=== PATIENT | male | born 1995 | race Caucasian/White ===

== ENCOUNTER 2016-05-29 17:33 | Emergency (ER) | payer SELFPAY ==
[2016-05-29 18:43] VITALS: BP 146/75
--- NOTE | 2016-05-29 19:45 | UC ---
Complaint Male HPI - HPI Summary HPI Summary: The patient comes in today for: 1. Dysuria: Onset: One week Palliative/provocative: Dysuria--worse with urination. Quality: Burning with urination. Region: Severity: 10 Time: Mostly with urination. Associated symptoms: FEver: None. Testicular pain: None. Discharge: None. Sexually active: Yes. Sex partners: one, female. She has not had any problems that she knows of. Urinary frequency: None Urinary urgency: None. He has noticed with his urination that there is more of a "fan" spray to his urine at times. * - History of Current Complaint Chief Complaint: [facility]CGU Stated Complaint: URINARY Time Seen by Provider: 05/29/16 19:36 Hx Obtained From: Patient - Allergies/Home Medications Allergies/Adverse Reactions: Allergies Allergy/AdvReac Type Severity Reaction Status Date / Time No Known Allergies Allergy Verified 05/29/16 18:38 Home Medications: Home Medications Aspirin [Ecotrin 325 MG] 3 tab PO PRN 05/29/16 [History] PMH/Surg Hx/FS Hx/Imm Hx Previously Healthy: Yes Endocrine History Of: Denies: Diabetes, Thyroid Disease, Hyperthyroidism, Hypothyroidism, Dyslipidemia Cardiovascular History Of: Denies: Cardiac Disorders, Hypertension, Pacemaker/ICD, Myocardial Infarction , Congestive Heart Failure, Atrial Fibrillation, Deep Vein Thrombosis, Bleeding Disorders Respiratory History Of: Denies: COPD, Asthma, Bronchitis, Pneumonia, Pulmonary Embolism GI/ History Of: Denies: Gastroesophageal Reflux, Ulcer, Gastrointestinal Bleed, Gall Bladder Disease, Kidney Stones, Diverticulitis, Renal Disease, Urosepsis Neurological History Of: Denies: TIA, CVA, Dementia, Seizures, Migraine Psychological History Of: Denies: Anxiety, Depression, Bipolar Disorder, Schizophrenia, Post Traumatic Stress Disorder Cancer History Of: Denies: Lung Cancer, Colorectal Cancer, Breast Cancer, Prostate Cancer, Cervical Cancer Other History Of: Negative For: HIV, Hepatitis B, Hepatitis C, Anticoagulant Therapy - Surgical History Surgical History: None - Family History Known Family History: Positive: Cardiac Disease Negative: Diabetes - Social History Occupation: Employed Full-time Alcohol Use: Weekly Alcohol Amount: Weekends Substance Use Type: None Smoking Status (MU): Former Smoker Household Exposure Type: Cigarettes Review of Systems Constitutional: Negative Skin: Negative Eyes: Negative ENT: Negative Respiratory: Negative Cardiovascular: Negative Gastrointestinal: Negative Genitourinary: Dysuria All Other Systems Reviewed And Are Negative: Yes Physical Exam Triage Information Reviewed: Yes Appearance: Well-Appearing, No Pain Distress, Well-Nourished Vital Signs: Initial Vital Signs Temp 98.2 F 05/29/16 18:39 Pulse 63 05/29/16 18:39 Resp 14 05/29/16 18:39 BP 146/75 05/29/16 18:39 Pulse Ox 100 05/29/16 18:39 Vital Signs Reviewed: Yes Eyes: Positive: Conjunctiva Clear. Negative: Discharge ENT: Positive: Hearing grossly normal. Negative: Pharyngeal erythema, Nasal congestion, Nasal drainage, TM bulging, TM dull, TM red, Tonsillar swelling, Tonsillar exudate Dental: Negative: Gross Decay/Caries @, Dental Fracture @ Neck: Positive: Supple, Nontender, No Lymphadenopathy. Negative: Nuchal Rigidity Respiratory: Positive: Chest non-tender, Lungs clear, No respiratory distress, No accessory muscle use. Negative: Crackles, Wheezing Cardiovascular: Positive: RRR, No Murmur Abdomen Description: Positive: Nontender, No Organomegaly, Soft. Negative: Distended, Guarding Musculoskeletal: Positive: Strength Intact, ROM Intact Neurological: Positive: Alert, Muscle Tone Normal Psychological: Positive: Age Appropriate Behavior, Consolable Skin: Negative: rashes, breakdown Complaint Male Course/Dx - Course Course Of Treatment: The patient was told of his diagnostic and treatment options. At this time, he does not want any medications-he wants to wait until the laboratory test results are back. - Differential Dx/Diagnosis Provider Diagnoses: Dysuria. urethral stricture. high blood pressure Discharge - Discharge Plan Condition: Stable Disposition: HOME Patient Education Materials: Dysuria (ED) Referrals: No Primary Care Phys,NOPCP [Primary Care Provider] - Additional Instructions: Please see one of the urologists listed on the speciality list in a 7-10 days to see how well you are doing and to address the stricture that I saw when I examined you. If you get worse, please be seen sooner.
== END 2016-05-29 20:04 | disposition home or self-care (01) ==
LOC: UCCORT 17:33
DX: R30.0 Dysuria (principal); N35.9 Urethral stricture, unspecified; R03.0 Elevated blood-pressure reading, without diagnosis of hypertension; Z87.891 Personal history of nicotine dependence
CPT/HCPCS: 81003; 87491; 87591; 99201; G0463